=== PATIENT | male | born 1970 | race Caucasian/White ===

== ENCOUNTER 2023-05-21 10:35 | Emergency (ER) | payer OTHER, SELFPAY ==
[2023-05-21 10:59] VITALS: BP 137/66; PULSE 70; RESP 18; TEMP 36.3; O2SAT 97
--- NOTE | 2023-05-21 13:36 | CRLHL7_ITS ---
For Patients: As a result of the Century Cures Act, medical imaging exams and procedure reports are released immediately into your electronic medical record. You may view this report before your referring provider. If you have questions, please contact your health care provider. INDICATION: Leg pain and swelling. TECHNIQUE: Ultrasound venous duplex lower right extremity. Compression venous exam was performed using rios-scale, color Doppler, and spectral Doppler analysis. COMPARISON: None. FINDINGS: Deep veins: Sonographic imaging demonstrates the right common femoral, deep femoral, superficial femoral, popliteal, posterior tibial, peroneal and the contralateral left common femoral veins to be fully compressible with normal color Doppler blood flow. Superficial veins: Greater saphenous vein is fully compressible. No popliteal cyst. IMPRESSION: Normal right lower extremity venous ultrasound, no sign of deep venous thrombosis. Dictated by Thee Lenz MD @ 05/21/2023 3:09:07 PM (Electronically Signed)
[2023-05-21 15:13] VITALS: BP 137/76; PULSE 70; RESP 18; O2SAT 97
--- NOTE | 2023-05-21 15:16 | ED_ITS ---
HPI - General Adult General Date Seen: 05/21/23 Chief complaint: Edema Stated complaint: swelling in right calf Time Seen by Provider: 05/21/23 14:34 Source: patient Mode of arrival: ambulatory Limitations: no limitations History of Present Illness HPI narrative: Patient is a 52-year-old male who notes that for the past week or so he has had increased swelling in his legs, particularly on the right. He says he has bad knees, he wears braces on both knees all day when he is at work. He always has some swelling but it has gotten a lot worse on the right and he saw is a physical therapist for the 1st time in 3 weeks today who said he should get it checked out. He has not had pain, no significant redness, no fevers, no chest pain or shortness of breath. He says he called his clinic, he made an appointment for June 04 but also talked to the triage nurse who recommended that he come to the ER. He has a history of hypertension, he takes he believes lisinopril combination with hydrochlorothiazide, as well as amlodipine. He does not drink. He is significantly overweight. Related Data Home Medications Medication Instructions Recorded Confirmed amlodipine 10 mg tablet 10 mg PO 07/25/22 01/23/23 lisinopril 20 1 tab PO 07/25/22 01/23/23 mg-hydrochlorothiazide 12.5 mg tablet fexofenadine 180 mg tablet 180 mg PO Q24H 01/23/23 01/23/23 ([facility]) Allergies Allergy/AdvReac Type Severity Reaction Status Date / Time No Known Drug Allergies Allergy Verified 01/23/23 15:02 Review of Systems Status of ROS: Reports: 10 or more systems reviewed and unremarkable except as noted in History and below [facility] Medical History Essential tremor ?G25.0 - Essential tremor (ICD-10) Hypertension ?I10 - Essential (primary) hypertension (ICD-10) Surgical History History of appendectomy ?Z90.49 - Acquired absence of other specified parts of digestive tract (ICD- 10) Social History Smoking Status: Never smoker Exam Narrative: Exam Narrative: Vital signs as noted above. In general, an alert, well-appearing patient. Head: Normocephalic, atraumatic. Eyes: Pupils are equal reactive. Extraocular movements are full. Conjunctivae are normal. ENT: Mucous membranes are moist. Neck: Supple without lymphadenopathy. Heart: Regular rate and rhythm. No murmur or rub. Lungs: Clear bilaterally. No increased work of breathing, crackles or wheezes. Abdomen: Soft and nontender. No organomegaly. Extremities: Velcro braces on both knees. He has pitting edema in bilateral calves and feet, right greater than left. No significant erythema, no warmth, no tenderness or fluctuance. Pulses intact in both feet. Neurologic: Patient is alert and oriented to person and place. Speech is fluent. Face is symmetric. Moves all extremities equally. Affect: Normal. Skin: Warm and dry. Well perfused. Const: Vital Signs, click to edit/add: Vital Signs - 24 hr 05/21/23 10:59 05/21/23 15:13 Temperature 97.3 F L Pulse Rate [Right Pulse Oximeter] 70 70 Respiratory Rate 18 18 Blood Pressure [Ri ght Upper Arm] 137/66 137/76 Pulse Oximetry 97 97 Oxygen Delivery Me thod Room Air Room Air Documenting provider has reviewed patient's vital signs: yes Course Course ED Course: Patient had a Doppler of the right lower extremity which is read as negative by Radiology. 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 He is relieved to know that there is no evidence of blood clot. I think that his knee braces are probably contributing a bit to the swelling in his legs, we talked about elevating, compression socks, and minimizing how much time he spends in the knee braces. He does note that over the weekend when he was in bed a lot with his legs up his swelling got much better. He is on amlodipine, he has been on this for several years but he could discuss with his primary doctor whether not this may be a contributing factor. For now, he declines other laboratory workup, addition of other diuretics etcetera. He would like to just see how he does with elevation and compression and then follow up with his primary doctor which I think is reasonable. No evidence of i nfection on exam. For changes such as significant pain, redness, fever etcetera he should come back to the ER. Vital Signs Vital signs: Initial Vital Signs Temperature 97.3 F L 05/21/23 10:59 Temperature Source Temporal Artery Scan 05/21/23 10:59 Pulse Rate 70 05/21/23 10:59 Respiratory Rate 18 05/21/23 10:59 Blood Pressure 137/66 05/21/23 10:59 Blood Pressure Mean 89 05/21/23 10:59 Blood Pressure Position Sitting 05/21/23 10:59 Pulse Oximetry 97 05/21/23 10:59 Oxygen Delivery Method Room Air 05/21/23 10:59 Vital Signs Temperature 97.3 F L 05/21/23 10:59 Pulse Rate 70 05/21/23 10:59 Respiratory Rate 18 05/21/23 10:59 Blood Pressure 137/66 05/21/23 10:59 Pulse Oximetry 97 05/21/23 10:59 Oxygen Delivery Method Room Air 05/21/23 10:59 Temperature 97.3 F L 05/21/23 10:59 Pulse Rate 70 05/21/23 15:13 Respiratory Rate 18 05/21/23 15:13 Blood Pressure 137/76 05/21/23 15:13 Pulse Oximetry 97 05/21/23 15:13 Oxygen Delivery Method Room Air 05/21/23 15:13 Discharge Plan Discharge Clinical Impression: Leg edema Patient Disposition: Home, Self-Care Condition: Stable Instructions: Leg Edema (ED) Additional Instructions: Continue current medications, amlodipine can sometimes be associated with swelling in the legs and feet, you could discuss this with your primary doctor. Elevate your legs as much as possible, compression stockings recommended as well. Try to spend some time every day without your knee braces on as these are likely contributing to swelling in your lower legs. If you have significant pain or redness, fevers, or other worsening, return to the emergency department. Prescriptions: No Action amlodipine 10 mg tablet 10 mg PO lisinopril-hydrochlorothiazide 20-12.5 mg tablet 1 tab PO fexofenadine [[facility]] 180 mg tablet 180 mg PO Q24H Follow Up/Referrals: Fahad Mccormick MD [Primary Care Provider] - Stand Alone Forms[facility] Info Instructions
== END 2023-05-21 15:24 | disposition home or self-care (01) ==
LOC: ED 14:57
PROVIDERS: Emergency Provider Emergency Medicine; PCP Family Medicine
DX: R60.9 Edema, unspecified (principal)
CPT/HCPCS: 93971; 97140; 99284

== ENCOUNTER 2023-10-11 13:06 | Outpatient (CLI) | payer OTHER, SELFPAY | END 2023-10-11 13:07 | disposition home or self-care (01) | LOC: INJ CL 13:08 | PROVIDERS: PCP Family Medicine; Visit Provider Family Medicine | DX: M54.16 Radiculopathy, lumbar region (principal); M51.36 Other intervertebral disc degeneration, lumbar region | CPT/HCPCS: 62323; J0702; Q9966 ==

== ENCOUNTER 2023-12-24 09:00 | Outpatient (RCR) | payer OTHER, SELFPAY | END 2024-04-22 23:59 | disposition home or self-care (01) | PROVIDERS: PCP Family Medicine; Visit Provider Family Medicine | DX: M54.9 Dorsalgia, unspecified (principal); M54.16 Radiculopathy, lumbar region; M51.36 Other intervertebral disc degeneration, lumbar region; M47.816 Spondylosis without myelopathy or radiculopathy, lumbar region; M17.0 Bilateral primary osteoarthritis of knee; Z51.89 Encounter for other specified aftercare | CPT/HCPCS: 97032; 97110; 97140; 97161 ==

== ENCOUNTER 2024-03-13 13:03 | Outpatient (CLI) | payer OTHER, SELFPAY | END 2024-03-13 13:04 | disposition home or self-care (01) | LOC: INJ CL 13:03 | PROVIDERS: PCP Family Medicine; Visit Provider Family Medicine | DX: M54.16 Radiculopathy, lumbar region (principal); M51.36 Other intervertebral disc degeneration, lumbar region | CPT/HCPCS: 62323; J0702; Q9966 ==

== ENCOUNTER 2024-10-13 07:52 | Outpatient (CLI) | payer BC, SELFPAY | END 2024-10-13 07:53 | disposition home or self-care (01) | LOC: INJ CL 07:54 | PROVIDERS: PCP Family Medicine; Visit Provider Family Medicine | DX: M54.16 Radiculopathy, lumbar region (principal); M48.062 Spinal stenosis, lumbar region with neurogenic claudication | CPT/HCPCS: 62323; J0702; Q9966 ==

== ENCOUNTER 2025-04-05 09:45 | Outpatient (RCR) | payer BC, SELFPAY | END 2025-08-03 23:59 | disposition home or self-care (01) | PROVIDERS: PCP Family Medicine; Visit Provider Family Medicine | DX: M25.511 Pain in right shoulder (principal); Z51.89 Encounter for other specified aftercare | CPT/HCPCS: 97110; 97161 ==

== ENCOUNTER 2025-06-29 10:11 | Outpatient (CLI) | payer BC, SELFPAY | END 2025-06-29 10:12 | disposition home or self-care (01) | LOC: INJ CL 10:11 | PROVIDERS: PCP Family Medicine; Visit Provider Family Medicine | DX: M54.16 Radiculopathy, lumbar region (principal); M51.369 Other intervertebral disc degeneration, lumbar region without mention of lumbar back pain or lower extremity pain | CPT/HCPCS: 62323; J0702; Q9966 ==